=== PATIENT | female | born 1960 | race Caucasian/White ===

== ENCOUNTER 2021-11-14 09:29 | Emergency (ER) | payer OTHER, SELFPAY ==
[2021-11-14] VITALS (8 sets, daily range): BP systolic 92–179; BP diastolic 65–107; PULSE 60–72; RESP 16–19; TEMP 36.6; O2SAT 96–100
--- NOTE | ~2021-11-14 | CT_ITS ---
EXAMINATION: CT abdomen pelvis wo con DATE: 11/14/2021 13:17 INDICATION: Left flank pain TECHNIQUE: Computed tomography (CT) of the abdomen and pelvis was performed without intravenous contr ast. Automated exposure control and iterative reconstruction technique were employed. Exam dose: 149 7.52 mGy-cm total exam DLP. COMPARISON: None. FINDINGS: There is mild atelectasis in the lower lobes. Normal heart size. No pericardial or pleural effusion. Small sliding hiatal hernia. There are numerous faceted gallstones. No gallbladder wall thickening or pericholecystic fluid or fat stranding. No bile duct or pancreatic duct dilatation. The liver, spleen, pancreas and adrenal glands are unremarkable. 3 mm nonobstructing right renal calculus. Approximately 3 x 5 x 4.7 mm proximal left ureteral calculus with moderate proximal left hydrouretero nephrosis. There is left perinephric stranding. Normal caliber of the abdominal aorta. No intraperitoneal or retroperitoneal or pelvic mass lesion or adenopathy or ascites. The urinary bladder, uterus and adnexal areas are unremarkable. Normal appendix. No bowel obstruction, bowel wall thickening, pneumatosis or intraperitoneal free air . There are occasional transverse and right colon diverticula; no CT evidence of diverticulitis. Small fat-containing umbilical hernia. No suspicious osteolytic or osteoblastic lesions. IMPRESSION: 3.5 x 4 point similar proximal left ureteral obstructing calculus with moderate left hyd ronephrosis 3 mm nonobstructing right renal calculus Small sliding hiatal hernia Cholelithiasis Diverticulosis of the colon; no CT evidence of diverticulitis Reviewed, dictated and finalized at [facility] Reviewed, dictated and finalized at [facility] [employer] IMPRESSION: 3.5 x 4 point similar proximal left ureteral obstructing calculus with moderate left hydronephrosis 3 mm nonobstructing right renal calculus Small sliding hiatal hernia Cholelithiasis Diverticulosis of the colon; no CT evidence of diverticulitis
[2021-11-14 10:53] LABS: Basophils Absolute Auto 0.1 K/mm3 (0.0-0.1); Basophils Percent Auto 0.5 % (0.2-1.2); Eosinophils Absolute Auto 0.1 K/mm3 (0-0.3); Eosinophils Percent Auto 0.6 % (0-4.4); Hematocrit 41.4 % (37.0-47.0); Hemoglobin 13.5 g/dL (12.0-15.0); Immature Granulocyte Percent A 0.7 % (0-0.5); Lymphocytes Absolute Auto 1.76 K/mm3 (0.9-3.2); Lymphocytes Percent Auto 12.5 % (18.3-44.2); Mean Corpuscular HGB Conc 32.6 g/dl (32-36); Mean Corpuscular Hemoglobin 29.9 pg (26-34); Mean Corpuscular Volume 91.6 fl (80-100); Mean Platelet Volume 10.3 fl (7.4-10.4); Monocytes Absolute Auto 0.4 K/mm3 (0.1-0.6); Monocytes Percent Auto 3.1 % (2.6-8.5); Neutrophils Absolute Auto 11.6 K/mm3 (1.3-6.7); Neutrophils Percent Auto 82.6 % (45.5-73.1); Platelet Count Result 238 k/mm3 (150-375); Red Blood Count 4.52 M/mm3 (4.2-5.4); Red Cell Distribution Width 13.5 % (11.5-14.5); White Blood Count 14.1 K/mm3 (4.5-10.0)
[2021-11-14 11:04] LABS: Alanine Aminotransferase 19 U/L (4-35); Albumin Level 4.5 g/dL (3.5-5.1); Alkaline Phosphatase 87 U/L (38-126); Anion Gap 8 mmol/L (8-16); Aspartate Amino Transferase 27 U/L (14-36); Bilirubin,Total 0.5 mg/dL (0.2-1.3); Blood Urea Nitrogen 13 mg/dL (7-17); Calcium 9.2 mg/dL (8.4-10.2); Carbon Dioxide 29 mmol/L (22-30); Chloride 105 mmol/L (98-107); Estimated CRCL calculation 68 ml/min; Estimated Glomerular Filt Rate 57; Glucose 163 mg/dL (65-110); Potassium 3.3 mmol/L (3.4-5.0); Sodium 142 mmol/L (137-145)
--- NOTE | 2021-11-14 11:05 | ED.GENADULT ---
HPI - General Adult General Chief complaint: Back Pain/Injury Stated complaint: kidney stone (L) Time Seen by Provider: 11/14/21 10:51 Source: patient Mode of arrival: ambulatory Limitations: no limitations History of Present Illness HPI narrative: Patient presents for evaluation of left flank pain since of 0500 this morning. Pain is constant, without descriptive quality, rated 10 out of 10 in severity. Pain radiates into the left lower quadrant of her abdomen. She has experienced nausea and vomiting. No fever or chills. She had similar symptoms in the past with kidney stones. However in the past she is experienced dysuria with kidney stones. She denies any dysuria, hematuria, frequency, urgency, hesitancy or other urinary symptoms. She is currently visiting the area from [place]. Denies any constipation, diarrhea, blood or mucus in the stool. No additional complaints or concerns. Related Data Allergies Allergy/AdvReac Type Severity Reaction Status Date / Time No Known Allergies Allergy Verified 11/14/21 10:12 Review of Systems Review of Systems: CONSTITUTIONAL: Denies fever, chills, or sweats. EYES: Denies visual changes, redness, or discharge. ENT: Denies rhinorrhea, congestion, sore throat, or otalgia. CARDIOVASCULAR: Denies chest pain, palpitations, or edema. RESPIRATORY: Denies cough or dyspnea. GASTROINTESTINAL: Reports left flank pain with radiation to left lower quadrant. Reports nausea and vomiting. Denies diarrhea. GENITOURINARY: Denies dysuria or hematuria. SKIN: Denies rash or itching. MUSCULOSKELETAL: Denies back pain, joint pain, or myalgia. NEUROLOGIC: Denies headache, numbness, dizziness, or weakness. PSYCHIATRIC: Denies anxiety or depression. [facility] Past Medical History Medical History (Updated 11/14/21 @ 17:15 by DANTE Shanks, MELANIE) Anxiety Surgical History Surgical History No pertinent past surgical history Family History Family History Mother Dementia Father Hypertension Social History Social History (Updated 11/14/21 @ 11:08 by DANTE Shansk, MELANIE) Smoking status: Never smoker Alcohol intake: current Alcohol use details: social Substance use: never Living arrangements: with family Gender identity (if verbalized by the patient): Female Sexual Orientation (if Verbalized by the Patient): Straight or Heterosexual Spiritual care concerns: No Exam Narrative: GENERAL: Visibly uncomfortable but in no apparent distress. HEAD: Normocephalic, atraumatic. EYES: PERRLA and EOMI. ENT: Nares clear, no rhinorrhea or epistaxis. Mucous membranes moist. Oropharynx without tonsillar hypertrophy exudate or other lesions. Bilateral TMs pearly gunderson nonbulging NECK: Supple. No adenopathy or masses. No carotid bruits or JVD CHEST: Clear to auscultation. No respiratory distress. No wheezes rales or rhonchi HEART: Regular rate and rhythm. No murmur heard. Normal peripheral pulses. ABDOMEN: Soft, mild left lower quadrant tenderness without rebound. There is guarding. Abdomen is nondistended, normal active bowel sounds. EXTREMITIES: Normal range of motion. No edema. SKIN: Warm, dry, no rash. NEURO: No focal deficits. Alert and oriented x3. PSYCH: Normal mood and affect. Course Course Emergency Course: This is a 61-year-old female present with complaints of left flank pain with radiation to the left lower quadrant. She was given several doses of morphine with improvement in her symptoms thereafter. CT showed a stone in left ureter. I contacted radiologist for clarification of findings and he indicated that there was a 3 x 5 x 4 to 5 mm stone present. I contacted urology, Dr. Taylor, due to size of stone and he indicated that if patient was feeling well she could be discharged home. He also offered to consult on case in the event the patient was ad
[2021-11-14] MEDS: ONDANSETRON INJ 4 MG/2 ML VIAL IV PUSH (11:19)
[2021-11-14] MEDS: MORPHINE SULFATE (*CRX) 2 MG/ML INJ IV PUSH (11:20)
[2021-11-14 11:46] LABS: Add Urine Microscopic? YES; Appearance Urine Clear (Clear); Bilirubin Urine Negative (Negative); Blood Urine 3+ (Negative); Color Urine Straw (Yellow); Glucose Urine UA Negative (Negative); Ketones Urine Negative (Negative); Leukocyte Esterase Ur Negative LEU/UL (Negative); Lipase 91 U/L (23-300); Mucus Urine Rare /lpf; Nitrate Urine Negative (Negative); Protein Urine Negative (Negative); RBC Urine >75 /hpf (0-2); Specific Grav Ur 1.015 (1.001-1.035); Squamous Epithelial Cell Urine Occasional /hpf (Few); Urobilinogen Urine Negative mg/dL (<2.0)
[2021-11-14] MEDS: MORPHINE SULFATE (*CRX) 4 MG/ML INJ IV PUSH (13:30)
[2021-11-14] MEDS: HYDROcodone/acetaminophen (*CRX) 5-325 MG TABLET 2 TAB PO (15:43)
== END 2021-11-14 17:25 | disposition home or self-care (01) ==
PROVIDERS: Emergency Medicine; Emergency Provider Nurse Practitioner; PCP Internal Medicine
DX: N20.0 Calculus of kidney (principal); K44.9 Diaphragmatic hernia without obstruction or gangrene; K80.20 Calculus of gallbladder without cholecystitis without obstruction; K57.90 Diverticulosis of intestine, part unspecified, without perforation or abscess without bleeding; Z87.442 Personal history of urinary calculi
CPT/HCPCS: 36415; 74176; 80053; 81001; 83605; 83690; 85025; 96374; 96375; 96376; 99284; A9270; J2270; J2405